=== PATIENT | male | born 1950 | race Asian ===

== ENCOUNTER 2017-05-29 09:27 | Emergency (ER) | payer MEDICARE ==
[~2017-05-29] VITALS: Ht 167.6 cm; Wt 59.0 kg
[2017-05-29] MEDS ORDERED: IBUPROFEN 600 MG TAB PO STA (09:45)
[2017-05-29] MEDS ORDERED: HYDROCODONE/APAP 5MG-325MG TAB PO ONE (10:00)
[2017-05-29] MEDS ORDERED: ALBUTEROL/IPRATROPIUM 3 ML NEB NEB ONE (11:15)
--- NOTE | 2017-05-29 11:24 | Diagnostic Imaging Report ---
PROCEDURE:X-RAY UNILATERAL RIBS WITH CHEST X-RAY COMPARISON:None. INDICATIONS:LEFT SIDE MID RIB PAIN FINDINGS: The lungs are well-inflated. No focal airspace consolidation, pleural effusion, or pneumothorax. Tortuosity and atherosclerotic calcification of the thoracic aorta. Normal heart size. No overt pulmonary edema. Acute mildly displaced fracture of the left seventh rib with adjacent airspace opacity, likely lung contusion. No additional displaced rib fracture. No pneumothorax. CONCLUSION: acute mildly displaced fracture of the left seventh rib with adjacent patchy airspace opacity, likely lung contusion. No pneumothorax. Dictated by: Butch Rasmussen M.D. on 05/29/2017 at 11:34 Electronically approved by: Butch Rasmussen M.D. on 05/29/2017 at 11:34
[2017-05-29] MEDS ORDERED: ONDANSETRON HCL 4 MG ORAL DISINTEGRATING TAB PO ONE (11:45)
[2017-05-29] MEDS ORDERED: MORPHINE SULFATE 5 MG/ML VIAL IM PRN (11:45)
[2017-05-29] MEDS ORDERED: PREDNISONE 20 MG TAB PO ONE (12:15)
[2017-05-29] MEDS ORDERED: AMOXICILLIN875 MG PO (13:23)
[2017-05-29] MEDS ORDERED: VENTOLIN HFA18 GM IH (13:23)
[2017-05-29] MEDS ORDERED: ZOFRAN4 MG SL (13:23)
[2017-05-29] MEDS ORDERED: ULTRAM50 MG PO (13:23)
[2017-05-29 13:40] VITALS: BP 131/80
== END 2017-05-29 13:38 | disposition home or self-care (01) ==
LOC: ER 09:27
DX: R07.89 Other chest pain (principal); S22.32XA Fracture of one rib, left side, initial encounter for closed fracture; W18.2XXA Fall in (into) shower or empty bathtub, initial encounter; Y93.E1 Activity, personal bathing and showering; Y92.002 Bathroom of unspecified non-institutional (private) residence as the place of occurrence of the external cause
CPT/HCPCS: 71101; 94640; 99283; J2270